=== PATIENT | male | born 1955 | race Caucasian/White ===

== ENCOUNTER 2018-08-06 08:05 | Inpatient (IN) | payer MEDICARE, MEDICAID ==
[2018-08-06] MEDS ORDERED: Lactated Ringer 1,000 ML IV ONE (08:27)
[2018-08-06] MEDS ORDERED: Pantoprazole 80 MG in Sodium Chloride 0.9% 100 ML IV ONE (08:27)
[2018-08-06] MEDS ORDERED: Pantoprazole 80 MG in Sodium Chloride 0.9% 100 ML IV SCH (08:30)
[2018-08-06 08:52] LABS: % BASOPHILS 2.1 % (0.0-2.0); % EOSINOPHILS 3.2 % (0.0-5.0); % LYMPHOCYTES 9.2 % (20.0-50.0); % MONOCYTES 8.8 % (2.0-10.0); % NEUTROPHILS 76.7 % (40.0-80.0); BASOPHILE ABSOLUTE 0.3 Th/cumm (0-0.2); EOSINOPHILE ABSOLUTE 0.4 Th/cmm (0.1-0.4); HEMATOCRIT 40.2 % (41.0-60); HEMOGLOBIN 13.3 gm/dL (12-16); LYMPHOCYTE ABSOLUTE 1.2 Th/cmm (1.5-3.0); MEAN CELL VOLUME 85.9 fl (80-99); MEAN CORPUSCULAR HEMOGLOBIN 28.4 pg (26.0-30.0); MEAN CORPUSCULAR HGB CONC 33.1 pg (28.0-36.0); MEAN PLATELET VOLUME 7.9 fl; MONOCYTE ABSOLUTE 1.1 Th/cmm (0.3-1.0); PLATELET COUNT 293 Th/cmm (150-400); RED BLOOD COUNT 4.69 Mil/cmm (4.30-5.70); RED CELL DISTRIBUTION WIDTH 12.8 % (11.5-20.0)
[2018-08-06 09:05] LABS: INR 0.91 (0.5-1.4); PROTHROMBIN TIME (TEST) 9.5 SECONDS (9.5-11.5)
[2018-08-06 09:08] LABS: ALB/GLOB RATIO 1.2 (1.0-1.8); ALBUMIN 4.1 gm/dL (4.2-5.5); ALKALINE PHOSPHATASE 86 U/L (34-104); ANION GAP 15.7 (7.0-16.0); BILIRUBIN,TOTAL 0.4 mg/dL (0.3-1.0); BUN - UREA NITROGEN 30 mg/dL (7-25); CALCIUM SERUM 9.7 mg/dL (8.6-10.3); CARBON DIOXIDE 28.3 mEq/L (21.0-31.0); CHLORIDE 100 mEq/L (98-107); CREATININE - SERUM 0.8 mg/dL (0.7-1.3); GFR AFRICAN-AMERICAN > 60.0 ml/min (>90); GFR NON AFRICAN-AMERICAN > 60.0 ml/min; GLUCOSE 134 mg/dL (70-105); SGOT 40 U/L (13-39); SGPT/ALT 62 U/L (7-52); SODIUM SERUM 140 mEq/L (136-145); TOTAL PROTEIN,SERUM 7.5 gm/dL (6.0-8.3)
--- NOTE | 2018-08-06 09:14 | ED Physician Chart ---
ED Chief Complaint/HPI - Patient Information Date Seen:: 08/06/18 Time Seen:: 08:36 Chief Complaint:: coffee ground emesis & distended abdomen History of Present Illness:: coffee ground emesis & distended abdomen Allergies:: Allergies Allergy/AdvReac Type Severity Reaction Status Date / Time sulfamethoxazole AdvReac Verified 08/06/18 08:35 [From Bactrim] trimethoprim [From Bactrim] AdvReac Verified 08/06/18 08:35 Vitals:: Vital Signs - 8 hr 08/06/18 08:36 Temp 98.9 F HR 114 RR 19 BP 157/81 O2 Sat % 90 Historian:: Medical Records Review:: Nurse's Note Reviewed, Transfer documents Reviewed ED Review of Systems - Review of Systems General/Constitutional: No fever, No chills, No weight loss, No weakness, No diaphoresis, No edema, No loss of appetite Skin: No skin lesions, No rash, No bruising Head: No headache, No light-headedness Eyes: No loss of vision, No pain, No diplopia ENT: No earache, No nasal drainage, No sore throat, No tinnitus Neck: No neck pain, No swelling, No thyromegaly, No stiffness, No mass noted Cardio Vascular: No chest pain, No palpitations, No PND, No orthopnea, No edema Pulmonary: No SOB, No cough, No sputum, No wheezing GI: Vomiting, No diarrhea, Pain, No melena, No hematochezia, No constipation, Hematemesis, Other (coffee ground emesis) G/U: No dysuria, No frequency, No hematuria Musculoskeletal: No bone or joint pain, No back pain, No muscle pain Endocrine: No polyuria, No polydipsia Psychiatric: No prior psych history, No depression, No anxiety, No suicidal ideation Hematopoietic: No bruising, No lymphadenopathy Allergic/Immuno: No urticaria, No angioedema Neurological: No syncope, No focal symptoms, No weakness, No paresthesia, No headache, No seizure, No dizziness, No confusion, No vertigo ED Past Medical History - Past Medical History Obtainable: No Past Medical History: HTN, Dyslipidemia, PUD/GERD, Seizures, Other (profound intellectual disability; cerebral palsy; GI bleed history; right inguinal hernia ; ) Surgical History: PEG/GTube Family Medical History - Family Member Mother History Unknown: Yes ED Physical Exam - Physical Examination General/Constitutional: Awake Other Gen/Cons comments:: chronically ill appearing, pale. BUE contracted. BLE contracted at ankle and feet. profoundly intellectually challenged. Head: Atraumatic Eyes: Lids, conjuctiva normal, PERRL, EOMI Other Skin comments:: evidence of chronic skin break down on sacrum. Stage I on sacrum (decubitus). ENMT: External ears, nose nl Neck: Nontender Respiratory: Nl effort/Exclusion Other Respiratory comments:: decreased breath sounds at bases. Cardio Vascular: NL S1 S2 Other Cardio Vascular comments:: tachycardia. Other GI comments:: HUGELY DISTENDED ABDOMEN (APPEARANCE OF THAT OF A 10 MONTH ). Not tympanitic. Reaction of pain with palpation. Other comments:: appearance of paraphimosis of penis. No foreskin present though, so this is not paraphimosis. Small amount of yellow urine dribbling out of penis. Other Extremities comments:: BUE contracted. BLE contracted at ankle and feet. Other Neuro/Psych comments:: profoundly intellectually challenged. Other Misc comments:: evidence of chronic skin break down on sacrum. Stage I on sacrum (decubitus). ED Labs/Radiology/EKG Results - Lab Results Results: Laboratory Tests 08/06/18 08:40 WBC 13.0 H RBC 4.69 Hgb 13.3 Hct 40.2 L MCV 85.9 MCH 28.4 MCHC Differential 33.1 RDW 12.8 Plt Count 293 MPV 7.9 Neutrophils % 76.7 Lymphocytes % 9.2 L Monocytes % 8.8 Eosinophils % 3.2 Basophils % 2.1 H ED Assessment - Assessment General Assessment: EK:59:48 p.m. reveals sinus tachycardia with flipped t wave in III and V1. Acute abdominal series: bilateral lower lobe infiltrates versus atelectasis. HAZINESS IN ABDOMEN: ASCITES VS. DISTENDED BLADDER. No free air on upright CXR. Nonspecific bowel gas changes. CT scan of abdomen when only 800 cc had been evacuated from the bladder: large hiatal hernia extending over the right cardiac border into the right hemithorax. Significant distention of the urinary bladder. Enlarged prostate gland. Question of soft tissue density in the right inguinal canal. 4500 cc removed from the bladder with a jackson catheter. Dr. Valenzuela came through the emergency room and wrote admit orders. Facility called re: Urinary retention with hemolyzed blood with evacuation of 4500 cc plus ED Septic Shock - . Is Septic Shock (SBP<90, OR Lactate>4 mmol\L) present?: No - <6hrs of presentation: Vital Signs: Vital Signs - 8 hr 08/06/18 08:36 Temp 98.9 F HR 114 RR 19 BP 157/81 O2 Sat % 90 ED Reassessment (Disposition) - Reassessment Reassessment Condition:: Improved - Diagnosis Diagnosis:: GI bloeed Coffee ground emesis Urinary retention with hemolyzed blood with evacuation of 4500 cc plus Elevated liver function tests - Patient Disposition Discharge/Transfer:: Acute Care w/in this hosp Admitted to:: Telemetry Admitting Medical Physician:: Manan Valenzuela Condition at Disposition:: Stable, Improved
[2018-08-06 09:15] LABS: AMYLASE SERUM 41 U/L (29-103); LIPASE 22 U/L (11-82)
[2018-08-06 09:33] LABS: URINE SOURCE CATH
[2018-08-06 09:35] LABS: URINE BILIRUBIN NEGATIVE (NEGATIVE); URINE BLOOD MODERATE (NEGATIVE); URINE GLUCOSE (UA) NEGATIVE (NEGATIVE); URINE KETONE NEGATIVE (NEGATIVE); URINE LEUKOCYTE ESTERASE NEGATIVE (NEGATIVE); URINE MICROSCOPIC INDICATED? YES; URINE NITRATE NEGATIVE (NEGATIVE); URINE PH 6.5 (4.6 - 8.0); URINE PROTEIN TRACE mg/dL (NEGATIVE); URINE UROBILINOGEN 0.2 E.U./dL (0.2 - 1.0)
[2018-08-06 09:43] LABS: URINE COLOR YELLOW
[2018-08-06 09:49] LABS: URINE CLARITY HAZY (CLEAR)
[2018-08-06 09:50] LABS: URINE BACTERIA NONE SEEN /hpf (NONE SEEN); URINE EPITHELIAL CELLS OCCASIONAL /lpf (FEW); URINE WBC 0-2 /hpf (0-5)
--- NOTE | 2018-08-06 09:58 | Diagnostic Imaging Report ---
Exam: CT exam abdomen pelvis HISTORY: Pain Total DLP equals 513 CTDI equals 10.0 Findings: Multiple contiguous thin section of the abdomen pelvis obtained from lower thorax to pubic symphysis without administration of oral or intravenous contrast material. No prior studies available comparison. The study demonstrates some mild atelectatic changes in the left base There is evidence of for a hiatal hernia. Liver parenchyma spleen intact. The joint glands are normal. The pancreas is intact. Gastrostomy tube in the stomach. The kidneys demonstrate no evidence of obstructive uropathy or nephrolithiasis. Prominence of the pelvicalyceal system and proximal ureters most likely related to overdistention of the urinary bladder. There is significant distention of the urinary bladder. Clinical correlation recommended. Prostate gland is enlarged impinging on the urinary bladder floor. There is no evidence of diverticular disease of diverticulitis. No fluid collections noted. Bony structures demonstrate no evidence for lytic or blastic changes. There is evidence of soft tissue density in the right inguinal canal clinical correlation recommended. IMPRESSION: Large hiatal hernia extending over the right cardiac border into the right hemithorax. Significant distention of the urinary bladder Enlarged prostate gland. Question of soft tissue density in the right inguinal canal.
--- NOTE | 2018-08-06 10:00 | Diagnostic Imaging Report ---
Exam: Acute abdominal series. HISTORY: Distended abdomen. Findings: Multiple views of the abdomen reviewed. The study demonstrates a relative possibly of the bowel gas throughout the abdomen. Correlation with previous CT examination of the abdomen demonstrates significant distention of the urinary bladder. Bony structures intact. Gastrostomy tube is noted. There is evidence for herniation of the bowel content right-sided hemithorax IMPRESSION: significant distention of urinary bladder with opacification of the mid to lower abdomen.
[2018-08-06] MEDS ORDERED: Fleet Enema 135 mL RC PRN (10:04)
[2018-08-06] MEDS ORDERED: Magnesium Hydroxide (MOM) 30 mL UDC PO PRN (10:04)
--- NOTE | 2018-08-06 13:26 | History & Physical ---
ADMIT DATE: 08/06/2018 INTERNAL MEDICINE HISTORY AND PHYSICAL CHIEF COMPLAINT: Coffee-ground emesis. HISTORY OF PRESENT ILLNESS: This is a 62-year-old Nepali male with history of seizures, cerebral palsy, hypertension, hypercholesterolemia, admitted from nursing facility secondary to coffee-ground emesis. The patient was also with abdominal distention. The patient evaluated in the ER and admitted for further management. The patient's routine urine about 4500 mL. Back catheter was placed. The patient is not verbal, not interactive. PAST MEDICAL HISTORY: As mentioned in the history of present illness. PAST SURGICAL HISTORY: G-tube. ALLERGIES: SULFA AND TRIMETHOPRIM. MEDICATIONS: The patient is on Keppra, ascorbic acid, calcium, cholecalciferol, omeprazole, Tylenol, ____ iron, folic acid, magnesium, metoprolol, simvastatin, ____ FAMILY HISTORY: Noncontributory. SOCIAL HISTORY: The patient is a prison patient, requiring 24-hour total care. REVIEW OF SYSTEMS: This is limited secondary to the patient's current mental state. We will try to obtain more detailed review of system later date by talking to family members, ____ sister at [phone]. We will also try to get a few more information from nursing staff at [facility], . PHYSICAL EXAMINATION: VITAL SIGNS: Blood pressure is 187/80, respirations 18, pulse 114, temperature 99. GENERAL: Elderly male, appears stated age. NECK: Supple. No mass. LUNGS: Equal breath sounds, few rhonchi. HEART: Regular rate and rhythm. Systolic ejection murmur. ABDOMEN: Soft, globular. EXTREMITIES: Positive excoriation. NEUROLOGIC: Limited as G-tube. LABORATORY DATA: WBC 13, hemoglobin 13, platelets 293. Sodium 140, potassium 4.0, BUN 30, creatinine 0.8, blood sugar 134. ASSESSMENT AND PLAN: 1. Coffee-ground emesis, possible gastrointestinal bleeding. 2. Urinary retention. 3. Leukocytosis. 4. Anemia. 5. Renal insufficiency. 6. Elevated liver function test. 7. Seizure. 8. Cerebral palsy. 9. Hypertension. 10. Hypercholesterolemia. PLAN: Continue the patient on oxygen and bronchodilator treatments. Continue INR, proton pump inhibitor. Continue on Back. We will empirically start the patient on antibiotic. GI has been consulted. We will refer the patient to urologist as well for urinary retention. We will follow the patient closely. [facility]# [id number]
[2018-08-06] MEDS ORDERED: CARBAMAZEPINE 400 MG PO SCH (17:00)
[2018-08-06] MEDS ORDERED: Non-Formulary Item 1 EA (Levetiracetam [Keppra] 750 MG) PO SCH (17:00)
[2018-08-06] MEDS: D5-0.45NS 1,000 ML IV SCH (17:48)
[2018-08-07 05:14] LABS: % BASOPHILS 0.6 % (0.0-2.0); % EOSINOPHILS 5.3 % (0.0-5.0); % LYMPHOCYTES 13.9 % (20.0-50.0); % MONOCYTES 9.5 % (2.0-10.0); % NEUTROPHILS 70.7 % (40.0-80.0); EOSINOPHILE ABSOLUTE 0.4 Th/cmm (0.1-0.4); HEMOGLOBIN 10.4 gm/dL (12-16); LYMPHOCYTE ABSOLUTE 1.1 Th/cmm (1.5-3.0); MEAN CELL VOLUME 85.5 fl (80-99); MEAN CORPUSCULAR HEMOGLOBIN 28.4 pg (26.0-30.0); MEAN CORPUSCULAR HGB CONC 33.2 pg (28.0-36.0); MEAN PLATELET VOLUME 8.2 fl; MONOCYTE ABSOLUTE 0.7 Th/cmm (0.3-1.0); NEUTROPHILE ABSOLUTE 5.6 Th/cmm (1.8-8.0); PLATELET COUNT 240 Th/cmm (150-400); RED BLOOD COUNT 3.67 Mil/cmm (4.30-5.70); RED CELL DISTRIBUTION WIDTH 12.7 % (11.5-20.0)
[2018-08-07 05:26] LABS: HEMATOCRIT 31.3 % (41.0-60); WHITE BLOOD COUNT 7.8 Th/cmm (4.8-10.8)
[2018-08-07 05:55] LABS: BUN - UREA NITROGEN 20 mg/dL (7-25); CALCIUM SERUM 8.6 mg/dL (8.6-10.3); CARBON DIOXIDE 26.6 mEq/L (21.0-31.0); CHLORIDE 105 mEq/L (98-107); CREATININE - SERUM 0.5 mg/dL (0.7-1.3); GFR AFRICAN-AMERICAN > 60.0 ml/min (>90); GFR NON AFRICAN-AMERICAN > 60.0 ml/min; GLUCOSE 100 mg/dL (70-105); MAGNESIUM 1.8 mg/dL (1.9-2.7); POTASSIUM SERUM 3.6 mEq/L (3.5-5.1); SODIUM SERUM 141 mEq/L (136-145)
[2018-08-07] MEDS ORDERED: Non-Formulary Item 1 EA (Multivit,Th Iron,Other Min [Thera-M] 1 TAB) PO SCH (09:00)
[2018-08-07] MEDS: Multivitamin w/ Minerals Tab PO SCH (09:36)
[2018-08-07] MEDS: Ferrous Sulfate 325 MG TAB PO SCH (09:36)
[2018-08-07] MEDS: D5-0.45NS 1,000 ML IV SCH (09:46)
[2018-08-07] MEDS ORDERED: Mag Sulfate 2gm/50mL Premix 2 GM/50 ML BAG IV ONE (13:11)
--- NOTE | 2018-08-07 13:13 | Internal Medicine Prog Note ---
Internal Medicine Subjective - Subjective Patient seen and examined:: with staff, chart reviewed Patient is:: asleep, non-verbal, non-interactive, eyes closed, in bed Patient Complaints of:: congestion, cough Per staff patient has:: no adverse event, no episodes of fall, tolerating meds Internal Medicine Objective - Results Result Diagrams: 08/07/18 04:30 08/07/18 04:30 Recent Labs: Laboratory Last Values WBC 7.8 Th/cmm (4.8-10.8) D 08/07/18 04:30 RBC 3.67 Mil/cmm (4.30-5.70) L 08/07/18 04:30 Hgb 10.4 gm/dL (12-16) L 08/07/18 04:30 Hct 31.3 % (41.0-60) L D 08/07/18 04:30 MCV 85.5 fl (80-99) 08/07/18 04:30 MCH 28.4 pg (26.0-30.0) 08/07/18 04:30 MCHC Differential 33.2 pg (28.0-36.0) 08/07/18 04:30 RDW 12.7 % (11.5-20.0) 08/07/18 04:30 Plt Count 240 Th/cmm (150-400) 08/07/18 04:30 MPV 8.2 fl 08/07/18 04:30 Neutrophils % 70.7 % (40.0-80.0) 08/07/18 04:30 Lymphocytes % 13.9 % (20.0-50.0) L 08/07/18 04:30 Monocytes % 9.5 % (2.0-10.0) 08/07/18 04:30 Eosinophils % 5.3 % (0.0-5.0) H 08/07/18 04:30 Basophils % 0.6 % (0.0-2.0) 08/07/18 04:30 PT 9.5 SECONDS (9.5-11.5) 08/06/18 08:40 INR 0.91 (0.5-1.4) 08/06/18 08:40 PTT (Actin FS) 25.3 SECONDS (26.0-38.0) L 08/06/18 08:40 Sodium 141 mEq/L (136-145) 08/07/18 04:30 Potassium 3.6 mEq/L (3.5-5.1) 08/07/18 04:30 Chloride 105 mEq/L (98-107) 08/07/18 04:30 Carbon Dioxide 26.6 mEq/L (21.0-31.0) 08/07/18 04:30 Anion Gap 13.0 (7.0-16.0) 08/07/18 04:30 BUN 20 mg/dL (7-25) 08/07/18 04:30 Creatinine 0.5 mg/dL (0.7-1.3) L 08/07/18 04:30 Est GFR ( Amer) > 60.0 ml/min (>90) 08/07/18 04:30 Est GFR (Non-Af Amer) > 60.0 ml/min 08/07/18 04:30 BUN/Creatinine Ratio 40.0 08/07/18 04:30 Glucose 100 mg/dL (70-105) 08/07/18 04:30 Whole Bld Lactic Acid 1.10 mmol/L (0.60-1.99) 08/06/18 08:40 Calcium 8.6 mg/dL (8.6-10.3) 08/07/18 04:30 Phosphorus 3.7 mg/dL (2.5-5.0) 08/06/18 08:40 Magnesium 1.8 mg/dL (1.9-2.7) L 08/07/18 04:30 Total Bilirubin 0.4 mg/dL (0.3-1.0) 08/06/18 08:40 AST 40 U/L (13-39) H 08/06/18 08:40 ALT 62 U/L (7-52) H 08/06/18 08:40 Alkaline Phosphatase 86 U/L (34-104) 08/06/18 08:40 Ammonia 54 umol/L (16-53) H 08/07/18 04:30 B-Natriuretic Peptide 18.9 pg/mL (5.0-100.0) 08/07/18 04:30 Total Protein 7.5 gm/dL (6.0-8.3) 08/06/18 08:40 Albumin 4.1 gm/dL (4.2-5.5) L 08/06/18 08:40 Globulin 3.4 gm/dL 08/06/18 08:40 Albumin/Globulin Ratio 1.2 (1.0-1.8) 08/06/18 08:40 Amylase 41 U/L (29-103) 08/06/18 08:40 Lipase 22 U/L (11-82) 08/06/18 08:40 TSH 3.47 uIU/ml (0.34-5.60) 08/06/18 08:40 Urine Source CATH 08/06/18 08:51 Urine Color YELLOW 08/06/18 08:51 Urine Clarity HAZY (CLEAR) 08/06/18 08:51 Urine pH 6.5 (4.6 - 8.0) 08/06/18 08:51 Ur Specific [place] 1.010 (1.005-1.030) 08/06/18 08:51 Urine Protein TRACE mg/dL (NEGATIVE) 08/06/18 08:51 Urine Glucose (UA) NEGATIVE mg/dL (NEGATIVE) 08/06/18 08:51 Urine Ketones NEGATIVE mg/dL (NEGATIVE) 08/06/18 08:51 Urine Blood MODERATE (NEGATIVE) H 08/06/18 08:51 Urine Nitrate NEGATIVE (NEGATIVE) 08/06/18 08:51 Urine Bilirubin NEGATIVE (NEGATIVE) 08/06/18 08:51 Urine Urobilinogen 0.2 E.U./dL (0.2 - 1.0) 08/06/18 08:51 Ur Leukocyte Esterase NEGATIVE (NEGATIVE) 08/06/18 08:51 Urine RBC 10-25 /hpf (0-5) H 08/06/18 08:51 Urine WBC 0-2 /hpf (0-5) 08/06/18 08:51 Ur Epithelial Cells OCCASIONAL /lpf (FEW) 08/06/18 08:51 Calcium Oxalate Crystal FEW /hpf 08/06/18 08:51 Urine Bacteria NONE SEEN /hpf (NONE SEEN) 08/06/18 08:51 - Physical Exam Vitals and I&O: Vital Signs Temp 99 F 08/07/18 12:00 Pulse 81 08/07/18 12:00 Resp 18 08/07/18 12:00 BP 96/54 08/07/18 12:00 Pulse Ox 100 08/07/18 12:00 Intake & Output 02/04/1408/07/18 08/07/18 18:59 06:59 18:59 Intake Total 50 1150 Output Total 400 Balance 50 750 Weight (lbs) 66.587 kg 66.224 kg Intake: Intake, IV Amount 50 1050 Cefepime 1 gm In Dextrose 50 50 5% 50 ml @ 100 mls/hr IV Q12HR [facility] Rx#:[id number] D5-0.45NS 1,000 ml @ 80 1000 mls/hr IV .[id number] [facility] Rx #:[id number] Oral 0 Other 100 Output: Urine 400 Other: # Bowel Movements 0 Weight Source Bedscale Bedscale Active Medications: Current Medications Acetaminophen (Tylenol) 650 mg PO Q4HR PRN PRN Reason: Pain or Fever >101 Stop: 10/05/18 10:03 Amlodipine Besylate (Norvasc) 5 mg PO BID [facility] Stop: 10/05/18 16:59 Bisacodyl (Dulcolax 10 Mg Supp) 10 mg RC PRN PRN PRN Reason: Constipation Stop: 10/05/18 10:03 Carbamazepine (Tegretol) 400 mg PO BID [facility] Stop: 10/05/18 16:59 Last Admin: 08/07/18 09:36 Dose: 400 mg Ferrous Sulfate (Iron) 325 mg PO DAILY [facility] Stop: 10/06/18 08:59 Last Admin: 08/07/18 09:36 Dose: 325 mg Folic Acid (Folate) 1 mg PO DAILY [facility] Stop: 10/06/18 08:59 Last Admin: 08/07/18 09:36 Dose: 1 mg Cefepime HCl 1 gm/ Dextrose 50 mls @ 100 mls/hr IV Q12HR [facility] Stop: 10/05/18 10:14 Last Admin: 08/07/18 10:47 Dose: 100 mls/hr Dextrose/Sodium Chloride (D5-0.45ns) 1,000 mls @ 80 mls/hr IV .[id number] [facility] Stop: 10/05/18 10:14 Last Admin: 08/07/18 09:46 Dose: 80 mls/hr Magnesium Sulfate (Magnesium Sulfate Premix) 2 gm in 50 mls @ 25 mls/hr IV X1 ONE Stop: 08/07/18 15:10 Levetiracetam (Keppra) 750 mg PO BID [facility] Stop: 10/05/18 16:59 Last Admin: 08/07/18 09:36 Dose: 750 mg Lorazepam (Ativan) 1 mg IV Q4H PRN; Protocol PRN Reason: Seizure Stop: 10/05/18 10:05 Magnesium Hydroxide (Milk Of Magnesia) 30 ml PO HS PRN PRN Reason: Constipation Stop: 10/05/18 10:03 Metoprolol Tartrate (Lopressor) 25 mg PO BID [facility] Stop: 10/05/18 16:59 Last Admin: 08/07/18 09:36 Dose: 25 mg Pantoprazole Sodium (Protonix) 40 mg IVP BID [facility] Stop: 10/05/18 16:59 Last Admin: 08/07/18 10:49 Dose: 40 mg Simvastatin (Zocor) 20 mg PO HS [facility]; Protocol Stop: 10/05/18 16:59 Last Admin: 08/06/18 20:56 Dose: 20 mg Sodium Phosphate (Fleet Enema) 135 ml RC PRN PRN PRN Reason: Constipation Stop: 10/05/18 10:03 Tamsulosin HCl (Flomax) 0.4 mg PO [facility] Stop: 10/05/18 20:59 Last Admin: 08/06/18 20:57 Dose: 0.4 mg General: congested, demented, disheveled HEENT: NC/AT, PERRLA Neck: Supple Lungs: congested, rales Cardiovascular: RRR, Normal S1, Normal S2, without murmur Abdomen: soft, non-tender, globular, +GT Extremities: excoriation, contracture Neurological: no change - Procedures Procedures: Procedures Procedure Code Date DRAINAGE OF HYDROCELE 19754 09/21/[address] GASTROSTOMY TUBE 96972 12/09/14 EMERGENCY DEPT VISIT 48772 07/14/11 PERCUT TUNICA ASPIRATION 61.91 09/21/09 PERCUTANEOUS [ENDOSCOPIC] GASTROSTOMY [PEG] 43.11 12/09/14 Internal Medicine Assmt/Plan - Assessment Assessment: ASSESSMENT AND PLAN: 1. Coffee-ground emesis, possible gastrointestinal bleeding. 2. Urinary retention. 3. Leukocytosis. 4. Anemia. 5. Renal insufficiency. 6. Elevated liver function test. 7. Seizure. 8. Cerebral palsy. 9. Hypertension. 10. Hypercholesterolemia. - Plan Plan: PLAN: Continue the patient on oxygen and bronchodilator treatments. Continue INR, proton pump inhibitor. Continue on Back. We will empirically start the patient on antibiotic. GI has been consulted. We will refer the patient to urologist as well for urinary retention. We will follow the patient closely.
--- NOTE | 2018-08-07 13:20 | Consultation ---
DATE OF CONSULTATION: 08/07/2018 UROLOGY CONSULTATION REASON FOR CONSULTATION: Seen for urinary retention. HISTORY OF PRESENT ILLNESS: The patient is a 62-year-old who was seen in the Emergency Room, transferred from a [facility], basically for coffee-ground emesis and abdominal pain with distention. He was found to have a large distended bladder as well on the CT scan and Back was placed, draining 4.5 liters of urine. Since then, the abdomen has resumed normal status. The patient is nonverbal with cerebral palsy, mental retardation and unable to provide any history. There is no family member available at this time either. He is being evaluated by GI as well. PAST MEDICAL HISTORY: He is known to have cerebral palsy, mental retardation, hyperlipidemia, history of GI bleed, history of peptic ulcer disease and gastroesophageal reflux disorder, history of seizure disorder, and inguinal hernia. ALLERGIES: To SULFA and TRIMETHOPRIM. HOME MEDICATIONS: Tylenol, Norvasc, vitamins, laxatives, calcium supplement, Carbatrol, vitamin D3, iron, folic acid, Keppra, magnesium hydroxide, metoprolol, omeprazole, Zocor, and Flomax. REVIEW OF SYSTEMS: Unable to provide us but we know he had coffee ground emesis and abdominal pain. There is no diarrhea. There is no change in mental status. There is no documentation of coughing or shortness of breath or chest pain. No recent seizures were noted. The patient is unable to tell about headaches. We do not know about his vision and swallowing capabilities as he is on a G-tube feeding. Urologic, he was in massive retention, but no other history known except possibly that of urinary tract infection in the past. He does have a decubitus on the sacral area and contractures of the lower extremities, mostly at the ankle and toes. PHYSICAL EXAMINATION: GENERAL: On exam, he is awake. He follows with his eyes. VITAL SIGNS: Temperature 98.4, heart rate 85, blood pressure 123/62. He does not communicate. HEAD AND NECK: Normocephalic. Trachea central. Pupils equal and reactive. No jaundice. Thyroid and lymph nodes not palpable. Carotid bruit absent. CHEST: Symmetrical. LUNGS: Clear. No rales or rhonchi. HEART: Sounds normal in sinus rhythm, no murmur. ABDOMEN: Soft, nontender, nondistended. No organomegaly, mass, or hernia appreciably noted, although CT scan shows inguinal hernia. G-tube is present. GENITALIA: Normal male, penis looks circumcised, but slightly swollen without any evidence of infection or inflammation. Right testicle is normal. Left is not easily palpable. EXTREMITIES: Contracted, but no pedal edema or lymphadenopathy. Stage I decubitus on the sacrum. RECTAL EXAM: Normal reduced sphincter tone. Prostate is high to reach and not palpable easily to clinical technician the size, but a CT scan shows it to be enlarged. LABORATORY DATA: White count was 13 yesterday, today 7.8 with antibiotics. Hemoglobin was 13.3 yesterday, today 10.4 indicating some sort of GI bleed or other bleeding source. Urine is clear. He does not have significant hematuria, just microscopic hematuria is present. PT, PTT are unremarkable. Liver functions indicate mildly elevated AST and ALT and significantly elevated ammonia level of 54, BUN 20, creatinine 0.5, albumin 4.1. Blood culture is negative so far and the CT scan shows massively distended bladder and enlarged prostate and may be a right inguinal hernia and a large hiatal hernia, occupying significant part of the right hemithorax. IMPRESSION: 1. Chronic urinary retention with acute precipitation due to unclear reasons. Currently, Back catheter is functioning well. I do not think he is a candidate for any surgical intervention. Therefore, I would recommend an indwelling Back for an indefinite period of time, changing it every 3-4 weeks and irrigating it every 2 days with at least 200-300 mL of normal saline to prevent infection and incrustation. 2. History of gastrointestinal bleed as per Gastroenterology workup. 3. Mental retardation, cerebral palsy and seizure disorder, seems to be stable. 4. Hypertension, well controlled. 5. Hyperlipidemia also stable. 6. Decubitus on the sacrum. JOB# [id number]
--- NOTE | 2018-08-07 23:46 | Consultation ---
DATE OF CONSULTATION: 08/07/2018 GASTROINTESTINAL CONSULT CONSULTING PHYSICIAN: Dr. Valenzuela. REASON FOR CONSULTATION: Coffee-ground emesis. HISTORY OF PRESENT ILLNESS: The patient is a 62-year-old male with past medical history significant for seizure disorder, cerebral palsy, hypertension, hyperlipidemia, admitted from his nursing facility for coffee-ground emesis that was witnessed at the facility. Additionally, in the ER, the patient had evaluation with CT scan that showed large amount of retained urine and a Back catheter produced 4.5 liters of urine when this was placed. Since his admission to the ER, the patient had no witnessed episodes of vomiting. He is nonverbal that is why history is largely obtained from the nursing staff, from the chart. PAST MEDICAL HISTORY: History of cerebral palsy, history of seizure disorder, hypertension, hyperlipidemia, dysphagia with the G-tube. PAST SURGICAL HISTORY: G-tube placement. FAMILY HISTORY: Noncontributory. SOCIAL HISTORY: The patient lives in a nursing facility. There is no documented history of alcoholism or illicit drugs. ALLERGIES: THERE IS REPORTED ALLERGY TO SULFA. REVIEW OF SYSTEMS: Not possible given the patient's inability to participate in interview. CURRENT MEDICATIONS: Include Tylenol, amlodipine, bisacodyl, carbamazepine, cefepime, iron, Keppra, lorazepam, milk of magnesia, Lopressor, Protonix at twice daily dosing, Zocor, Fleet enema. PHYSICAL EXAMINATION: VITAL SIGNS: Blood pressure is 129/69, pulse 88 beats per minute, temperature 98.4, respiratory rate of 18, oxygenation is 98% on 2 liters. GENERAL: The patient lying on his back. He appears contracted. He is alert and oriented x 0. HEAD, EARS, EYES, NOSE AND THROAT: Normocephalic, atraumatic appearing head. Pupils are equal and reactive. He does not track. Moist mucous membranes. NECK: Supple. No obvious JVD or thyromegaly. CHEST: There are some crackles at the bases. CARDIOVASCULAR: S1, S2 are present, regular rate and rhythm. ABDOMEN: There is a G-tube clean, dry and intact. Otherwise soft, nontender to palpation. EXTREMITIES: Contracted appearing. No obvious edema. SKIN: No jaundice is noted. LABORATORY DATA: White blood cell count is 7.8, hemoglobin 10.4, platelet count 240. INR 0.9. BUN 20, creatinine 0.5, total bilirubin 0.4, AST 40, ALT 62, lipase is 22. IMAGING: Abdomen and pelvis CT scan was performed and this shows evidence of the hiatal hernia, atelectasis. Liver appears normal. Pancreas appears normal. Gastrostomy tube is in the stomach, significant distention of the urinary bladder. IMPRESSION: This is a 62-year-old male with history of seizure disorder, cerebral palsy, dysphagia with a gastric tube, admitted to the hospital with coffee-ground emesis and urinary retention. 1. Coffee-ground emesis. 2. Urinary retention problem. 3. Cerebral palsy. 4. Seizure disorder. 5. Dysphagia with gastric tube. DISCUSSION: Etiology of the patient's coffee ground-emesis may have been his hiatal hernia or it also could have had retained the fact that he had 4.5 liters retained in the bladder, which has now been evacuated. Either way, he has not had any further episodes of coffee-ground emesis since his admission here, and he appears largely stable. He has had upper endoscopy in 2014, and at that time, a G-tube was placed. Given his overall state of health, I do not feel that performing upper endoscopy at the current time would be beneficial for the patient, especially since he has had no further episodes of any vomiting here and is stable. Thus, I would reserve performing EGD on this patient unless he has further need for hemostasis or further episodes of coffee-ground emesis. In the meantime, we will treat conservatively with b.i.d. Protonix and this can be downgraded to daily Protonix in 1 month. RECOMMENDATIONS: 1. [place] endoscopy in case the patient needs hemostasis or has further coffee-ground emesis. 2. Agree with Protonix twice daily dosing for 1 month and this can be downgraded at that point to daily. 3. Restart the patient's G-tube feedings at the current time and this can be advanced to the goal rate. Hold for any residuals greater than 100 mL. 4. Management of the patient's urinary retention as per primary and Urology. We will continue to follow. Thank you for allowing us to participate in his care. Please call with any further questions. JOB# [id number]
[2018-08-08] MEDS: D5-0.45NS 1,000 ML IV SCH (00:44)
[2018-08-08 04:59] LABS: % BASOPHILS 1.1 % (0.0-2.0); % EOSINOPHILS 5.3 % (0.0-5.0); % MONOCYTES 9.2 % (2.0-10.0); % NEUTROPHILS 69.4 % (40.0-80.0); BASOPHILE ABSOLUTE 0.1 Th/cumm (0-0.2); EOSINOPHILE ABSOLUTE 0.4 Th/cmm (0.1-0.4); HEMATOCRIT 30.9 % (41.0-60); HEMOGLOBIN 10.2 gm/dL (12-16); LYMPHOCYTE ABSOLUTE 1.2 Th/cmm (1.5-3.0); MEAN CORPUSCULAR HEMOGLOBIN 28.3 pg (26.0-30.0); MEAN CORPUSCULAR HGB CONC 32.9 pg (28.0-36.0); MEAN PLATELET VOLUME 8.3 fl; MONOCYTE ABSOLUTE 0.7 Th/cmm (0.3-1.0); NEUTROPHILE ABSOLUTE 5.4 Th/cmm (1.8-8.0); PLATELET COUNT 255 Th/cmm (150-400); RED BLOOD COUNT 3.59 Mil/cmm (4.30-5.70); RED CELL DISTRIBUTION WIDTH 11.9 % (11.5-20.0); WHITE BLOOD COUNT 7.8 Th/cmm (4.8-10.8)
[2018-08-08 05:19] LABS: ANION GAP 10.3 (7.0-16.0); BUN - UREA NITROGEN 16 mg/dL (7-25); CALCIUM SERUM 8.2 mg/dL (8.6-10.3); CARBON DIOXIDE 26.4 mEq/L (21.0-31.0); CHLORIDE 104 mEq/L (98-107); CREATININE - SERUM 0.5 mg/dL (0.7-1.3); GFR AFRICAN-AMERICAN > 60.0 ml/min (>90); GFR NON AFRICAN-AMERICAN > 60.0 ml/min; GLUCOSE 108 mg/dL (70-105); MAGNESIUM 1.8 mg/dL (1.9-2.7); POTASSIUM SERUM 3.7 mEq/L (3.5-5.1); SODIUM SERUM 137 mEq/L (136-145)
--- NOTE | 2018-08-08 08:49 | GI Progress Note ---
Subjective - Review of Systems Service Date: 08/08/18 Subjective: Back within GC fistula. No vomiting Objective - Results Result Diagrams: 08/08/18 04:15 08/08/18 04:15 Recent Labs: Laboratory Last Values WBC 7.8 Th/cmm (4.8-10.8) 08/08/18 04:15 RBC 3.59 Mil/cmm (4.30-5.70) L 08/08/18 04:15 Hgb 10.2 gm/dL (12-16) L 08/08/18 04:15 Hct 30.9 % (41.0-60) L 08/08/18 04:15 MCV 86.0 fl (80-99) 08/08/18 04:15 MCH 28.3 pg (26.0-30.0) 08/08/18 04:15 MCHC Differential 32.9 pg (28.0-36.0) 08/08/18 04:15 RDW 11.9 % (11.5-20.0) 08/08/18 04:15 Plt Count 255 Th/cmm (150-400) 08/08/18 04:15 MPV 8.3 fl 08/08/18 04:15 Neutrophils % 69.4 % (40.0-80.0) 08/08/18 04:15 Lymphocytes % 15.0 % (20.0-50.0) L 08/08/18 04:15 Monocytes % 9.2 % (2.0-10.0) 08/08/18 04:15 Eosinophils % 5.3 % (0.0-5.0) H 08/08/18 04:15 Basophils % 1.1 % (0.0-2.0) 08/08/18 04:15 PT 9.5 SECONDS (9.5-11.5) 08/06/18 08:40 INR 0.91 (0.5-1.4) 08/06/18 08:40 PTT (Actin FS) 25.3 SECONDS (26.0-38.0) L 08/06/18 08:40 Sodium 137 mEq/L (136-145) 08/08/18 04:15 Potassium 3.7 mEq/L (3.5-5.1) 08/08/18 04:15 Chloride 104 mEq/L (98-107) 08/08/18 04:15 Carbon Dioxide 26.4 mEq/L (21.0-31.0) 08/08/18 04:15 Anion Gap 10.3 (7.0-16.0) 08/08/18 04:15 BUN 16 mg/dL (7-25) 08/08/18 04:15 Creatinine 0.5 mg/dL (0.7-1.3) L 08/08/18 04:15 Est GFR ( Amer) > 60.0 ml/min (>90) 08/08/18 04:15 Est GFR (Non-Af Amer) > 60.0 ml/min 08/08/18 04:15 BUN/Creatinine Ratio 32.0 08/08/18 04:15 Glucose 108 mg/dL (70-105) H 08/08/18 04:15 Whole Bld Lactic Acid 1.10 mmol/L (0.60-1.99) 08/06/18 08:40 Calcium 8.2 mg/dL (8.6-10.3) L 08/08/18 04:15 Phosphorus 3.7 mg/dL (2.5-5.0) 08/06/18 08:40 Magnesium 1.8 mg/dL (1.9-2.7) L 08/08/18 04:15 Total Bilirubin 0.4 mg/dL (0.3-1.0) 08/06/18 08:40 AST 40 U/L (13-39) H 08/06/18 08:40 ALT 62 U/L (7-52) H 08/06/18 08:40 Alkaline Phosphatase 86 U/L (34-104) 08/06/18 08:40 Ammonia 54 umol/L (16-53) H 08/07/18 04:30 B-Natriuretic Peptide 75.5 pg/mL (5.0-100.0) 08/08/18 04:15 Total Protein 7.5 gm/dL (6.0-8.3) 08/06/18 08:40 Albumin 4.1 gm/dL (4.2-5.5) L 08/06/18 08:40 Globulin 3.4 gm/dL 08/06/18 08:40 Albumin/Globulin Ratio 1.2 (1.0-1.8) 08/06/18 08:40 Amylase 41 U/L (29-103) 08/06/18 08:40 Lipase 22 U/L (11-82) 08/06/18 08:40 TSH 3.47 uIU/ml (0.34-5.60) 08/06/18 08:40 Urine Source CATH 08/06/18 08:51 Urine Color YELLOW 08/06/18 08:51 Urine Clarity HAZY (CLEAR) 08/06/18 08:51 Urine pH 6.5 (4.6 - 8.0) 08/06/18 08:51 Ur Specific [place] 1.010 (1.005-1.030) 08/06/18 08:51 Urine Protein TRACE mg/dL (NEGATIVE) 08/06/18 08:51 Urine Glucose (UA) NEGATIVE mg/dL (NEGATIVE) 08/06/18 08:51 Urine Ketones NEGATIVE mg/dL (NEGATIVE) 08/06/18 08:51 Urine Blood MODERATE (NEGATIVE) H 08/06/18 08:51 Urine Nitrate NEGATIVE (NEGATIVE) 08/06/18 08:51 Urine Bilirubin NEGATIVE (NEGATIVE) 08/06/18 08:51 Urine Urobilinogen 0.2 E.U./dL (0.2 - 1.0) 08/06/18 08:51 Ur Leukocyte Esterase NEGATIVE (NEGATIVE) 08/06/18 08:51 Urine RBC 10-25 /hpf (0-5) H 08/06/18 08:51 Urine WBC 0-2 /hpf (0-5) 08/06/18 08:51 Ur Epithelial Cells OCCASIONAL /lpf (FEW) 08/06/18 08:51 Calcium Oxalate Crystal FEW /hpf 08/06/18 08:51 Urine Bacteria NONE SEEN /hpf (NONE SEEN) 08/06/18 08:51 - Physical Exam Vitals and I&O: Vital Signs Temp 98.7 F 08/08/18 04:00 Pulse 86 08/08/18 07:19 Resp 18 08/08/18 07:19 BP 108/57 08/08/18 04:00 Pulse Ox 96 08/08/18 07:19 Intake & Output 08/07/18 08/08/18 08/08/18 18:59 06:59 18:59 Intake Total 50 1000 Output Total 550 Balance 50 450 Weight (lbs) 66.224 kg Intake: Intake, IV Amount 50 1000 Cefepime 1 gm In Dextrose 50 5% 50 ml @ 100 mls/hr IV Q12HR [facility] Rx#:[id number] D5-0.45NS 1,000 ml @ 80 1000 mls/hr IV .[id number] [facility] Rx #:[id number] Output: Urine 550 Other: # Bowel Movements 0 Weight Source Bedscale Active Medications: Current Medications Acetaminophen (Tylenol) 650 mg PO Q4HR PRN PRN Reason: Pain or Fever >101 Stop: 10/05/18 10:03 Amlodipine Besylate (Norvasc) 5 mg PO BID [facility] Stop: 10/05/18 16:59 Last Admin: 08/07/18 16:41 Dose: Not Given Bisacodyl (Dulcolax 10 Mg Supp) 10 mg RC PRN PRN PRN Reason: Constipation Stop: 10/05/18 10:03 Carbamazepine (Tegretol) 400 mg PO BID [facility] Stop: 10/05/18 16:59 Last Admin: 08/07/18 16:41 Dose: 400 mg Ferrous Sulfate (Iron) 325 mg PO DAILY [facility] Stop: 10/06/18 08:59 Last Admin: 08/07/18 09:36 Dose: 325 mg Folic Acid (Folate) 1 mg PO DAILY [facility] Stop: 10/06/18 08:59 Last Admin: 08/07/18 09:36 Dose: 1 mg Cefepime HCl 1 gm/ Dextrose 50 mls @ 100 mls/hr IV Q12HR [facility] Stop: 10/05/18 10:14 Last Admin: 08/07/18 21:56 Dose: 100 mls/hr Dextrose/Sodium Chloride (D5-0.45ns) 1,000 mls @ 80 mls/hr IV .[id number] [facility] Stop: 10/05/18 10:14 Last Admin: 08/08/18 00:44 Dose: 80 mls/hr Levetiracetam (Keppra) 750 mg PO BID [facility] Stop: 10/05/18 16:59 Last Admin: 08/07/18 16:40 Dose: 750 mg Lorazepam (Ativan) 1 mg IV Q4H PRN; Protocol PRN Reason: Seizure Stop: 10/05/18 10:05 Magnesium Hydroxide (Milk Of Magnesia) 30 ml PO HS PRN PRN Reason: Constipation Stop: 10/05/18 10:03 Metoprolol Tartrate (Lopressor) 25 mg PO BID [facility] Stop: 10/05/18 16:59 Last Admin: 08/07/18 16:40 Dose: Not Given Pantoprazole Sodium (Protonix) 40 mg IVP BID [facility] Stop: 10/05/18 16:59 Last Admin: 08/07/18 16:40 Dose: 40 mg Simvastatin (Zocor) 20 mg PO HS [facility]; Protocol Stop: 10/05/18 16:59 Last Admin: 08/07/18 21:56 Dose: 20 mg Sodium Phosphate (Fleet Enema) 135 ml RC PRN PRN PRN Reason: Constipation Stop: 10/05/18 10:03 Tamsulosin HCl (Flomax) 0.4 mg PO [facility] Stop: 10/05/18 20:59 Last Admin: 08/07/18 21:56 Dose: 0.4 mg General: Alert HEENT: Atraumatic Neck: Supple Cardiovascular: Regular rate Abdomen: Bowel sounds, Soft, no Tender, no Hepatomegaly, no Splenomegaly, no Distended, no Rebound, no Mass, no Guarding - Procedures Procedures: Procedures Procedure Code Date DRAINAGE OF HYDROCELE 69117 09/21/[address] GASTROSTOMY TUBE 97208 12/09/14 EMERGENCY DEPT VISIT 72381 07/14/11 PERCUT [place] ASPIRATION 61.91 09/21/09 PERCUTANEOUS [ENDOSCOPIC] GASTROSTOMY [PEG] 43.11 12/09/14 Assessment/Plan - Assessment Assessment: # Coffee ground emesis by history # Cerebral Palsy # Seizure disorder # G tube malfunction No further vomiting. Thus, we will treat non endoscopically as this did not appear to be a major GI bleed event. G tube changed at bedside on 08/07 with new 20f tube Plan: - ppi bid for 1 month, then daily - if further e/o GI bleed, we can perform EGD on this admission - trend hgb - once new G tube confirmed, can be used for tube feeding - hold for residual > 100cc GI to see intermittently, please call with any questions
--- NOTE | 2018-08-08 09:23 | Diagnostic Imaging Report ---
Portable chest x-ray HISTORY: Shortness of breath Somewhat limited exam due to difficulty in patient positioning. There is a very poor inspiration. Density about the right cardiophrenic angle. This corresponds to a relatively large hiatal hernia noted on the CT scan of August 06, 2018. No acute focal pulmonary parenchymal processes. No pleural fluid. IMPRESSION: 1. Density near the right cardiophrenic angle consistent with the previous CT documented large hiatal hernia of August 06, 2018. 2. No other acute abnormalities
[2018-08-08] MEDS: Ferrous Sulfate 325 MG TAB PO SCH (10:43)
[2018-08-08] MEDS: Multivitamin w/ Minerals Tab PO SCH (10:43)
--- NOTE | 2018-08-08 11:33 | Diagnostic Imaging Report ---
Upper GI (Limited) HISTORY: Gastrostomy tube placement Water-soluble contrast was instilled into the patient's gastrostomy tube. There is opacification of the gastric lumen with flow contrast into the duodenum. There is a large hiatal hernia with the gastric fundus situated above the diaphragm. IMPRESSION: 1. Confirmation of gastrostomy tube within the gastric lumen 2. Large hiatal hernia with the gastric fundus above the diaphragm.
[2018-08-08 12:11] LABS: FOLIC ACID >20.0 ng/mL (>3.0)
[2018-08-08] MEDS ORDERED: Mag Sulfate 2gm/50mL Premix 2 GM/50 ML BAG IV ONE (12:22)
--- NOTE | 2018-08-08 12:23 | Internal Medicine Prog Note ---
Internal Medicine Subjective - Subjective Patient seen and examined:: with staff, chart reviewed Patient is:: asleep, non-verbal, non-interactive, eyes closed, in bed Patient Complaints of:: congestion, cough Per staff patient has:: no adverse event, no episodes of fall, tolerating meds Internal Medicine Objective - Results Result Diagrams: 08/08/18 04:15 08/08/18 04:15 Recent Labs: Laboratory Last Values WBC 7.8 Th/cmm (4.8-10.8) 08/08/18 04:15 RBC 3.59 Mil/cmm (4.30-5.70) L 08/08/18 04:15 Hgb 10.2 gm/dL (12-16) L 08/08/18 04:15 Hct 30.9 % (41.0-60) L 08/08/18 04:15 MCV 86.0 fl (80-99) 08/08/18 04:15 MCH 28.3 pg (26.0-30.0) 08/08/18 04:15 MCHC Differential 32.9 pg (28.0-36.0) 08/08/18 04:15 RDW 11.9 % (11.5-20.0) 08/08/18 04:15 Plt Count 255 Th/cmm (150-400) 08/08/18 04:15 MPV 8.3 fl 08/08/18 04:15 Neutrophils % 69.4 % (40.0-80.0) 08/08/18 04:15 Lymphocytes % 15.0 % (20.0-50.0) L 08/08/18 04:15 Monocytes % 9.2 % (2.0-10.0) 08/08/18 04:15 Eosinophils % 5.3 % (0.0-5.0) H 08/08/18 04:15 Basophils % 1.1 % (0.0-2.0) 08/08/18 04:15 PT 9.5 SECONDS (9.5-11.5) 08/06/18 08:40 INR 0.91 (0.5-1.4) 08/06/18 08:40 PTT (Actin FS) 25.3 SECONDS (26.0-38.0) L 08/06/18 08:40 Sodium 137 mEq/L (136-145) 08/08/18 04:15 Potassium 3.7 mEq/L (3.5-5.1) 08/08/18 04:15 Chloride 104 mEq/L (98-107) 08/08/18 04:15 Carbon Dioxide 26.4 mEq/L (21.0-31.0) 08/08/18 04:15 Anion Gap 10.3 (7.0-16.0) 08/08/18 04:15 BUN 16 mg/dL (7-25) 08/08/18 04:15 Creatinine 0.5 mg/dL (0.7-1.3) L 08/08/18 04:15 Est GFR ( Amer) > 60.0 ml/min (>90) 08/08/18 04:15 Est GFR (Non-Af Amer) > 60.0 ml/min 08/08/18 04:15 BUN/Creatinine Ratio 32.0 08/08/18 04:15 Glucose 108 mg/dL (70-105) H 08/08/18 04:15 Whole Bld Lactic Acid 1.10 mmol/L (0.60-1.99) 08/06/18 08:40 Calcium 8.2 mg/dL (8.6-10.3) L 08/08/18 04:15 Phosphorus 3.7 mg/dL (2.5-5.0) 08/06/18 08:40 Magnesium 1.8 mg/dL (1.9-2.7) L 08/08/18 04:15 Total Bilirubin 0.4 mg/dL (0.3-1.0) 08/06/18 08:40 AST 40 U/L (13-39) H 08/06/18 08:40 ALT 62 U/L (7-52) H 08/06/18 08:40 Alkaline Phosphatase 86 U/L (34-104) 08/06/18 08:40 Ammonia 54 umol/L (16-53) H 08/07/18 04:30 B-Natriuretic Peptide 75.5 pg/mL (5.0-100.0) 08/08/18 04:15 Total Protein 7.5 gm/dL (6.0-8.3) 08/06/18 08:40 Albumin 4.1 gm/dL (4.2-5.5) L 08/06/18 08:40 Globulin 3.4 gm/dL 08/06/18 08:40 Albumin/Globulin Ratio 1.2 (1.0-1.8) 08/06/18 08:40 Amylase 41 U/L (29-103) 08/06/18 08:40 Lipase 22 U/L (11-82) 08/06/18 08:40 Vitamin B12 1047 pg/mL (232-1245) 08/07/18 04:30 Folic Acid >20.0 ng/mL (>3.0) 08/07/18 04:30 TSH 3.47 uIU/ml (0.34-5.60) 08/06/18 08:40 Urine Source CATH 08/06/18 08:51 Urine Color YELLOW 08/06/18 08:51 Urine Clarity HAZY (CLEAR) 08/06/18 08:51 Urine pH 6.5 (4.6 - 8.0) 08/06/18 08:51 Ur Specific [place] 1.010 (1.005-1.030) 08/06/18 08:51 Urine Protein TRACE mg/dL (NEGATIVE) 08/06/18 08:51 Urine Glucose (UA) NEGATIVE mg/dL (NEGATIVE) 08/06/18 08:51 Urine Ketones NEGATIVE mg/dL (NEGATIVE) 08/06/18 08:51 Urine Blood MODERATE (NEGATIVE) H 08/06/18 08:51 Urine Nitrate NEGATIVE (NEGATIVE) 08/06/18 08:51 Urine Bilirubin NEGATIVE (NEGATIVE) 08/06/18 08:51 Urine Urobilinogen 0.2 E.U./dL (0.2 - 1.0) 08/06/18 08:51 Ur Leukocyte Esterase NEGATIVE (NEGATIVE) 08/06/18 08:51 Urine RBC 10-25 /hpf (0-5) H 08/06/18 08:51 Urine WBC 0-2 /hpf (0-5) 08/06/18 08:51 Ur Epithelial Cells OCCASIONAL /lpf (FEW) 08/06/18 08:51 Calcium Oxalate Crystal FEW /hpf 08/06/18 08:51 Urine Bacteria NONE SEEN /hpf (NONE SEEN) 08/06/18 08:51 - Physical Exam Vitals and I&O: Vital Signs Temp 97.2 F 08/08/18 12:00 Pulse 84 08/08/18 12:00 Resp 18 08/08/18 12:00 BP 123/65 08/08/18 12:00 Pulse Ox 100 08/08/18 12:00 Intake & Output 08/07/18 08/08/18 08/08/18 18:59 06:59 18:59 Intake Total 50 1050 Output Total 550 Balance 50 500 Weight (lbs) 66.224 kg Intake: Intake, IV Amount 50 1050 Cefepime 1 gm In Dextrose 50 50 5% 50 ml @ 100 mls/hr IV Q12HR [facility] Rx#:[id number] D5-0.45NS 1,000 ml @ 80 1000 mls/hr IV .[id number] [facility] Rx #:[id number] Output: Urine 550 Other: # Bowel Movements 0 Weight Source Bedscale Active Medications: Current Medications Acetaminophen (Tylenol) 650 mg PO Q4HR PRN PRN Reason: Pain or Fever >101 Stop: 10/05/18 10:03 Amlodipine Besylate (Norvasc) 5 mg PO BID [facility] Stop: 10/05/18 16:59 Last Admin: 08/08/18 11:31 Dose: Not Given Bisacodyl (Dulcolax 10 Mg Supp) 10 mg RC PRN PRN PRN Reason: Constipation Stop: 10/05/18 10:03 Carbamazepine (Tegretol) 400 mg PO BID [facility] Stop: 10/05/18 16:59 Last Admin: 08/08/18 11:31 Dose: Not Given Ferrous Sulfate (Iron) 325 mg PO DAILY [facility] Stop: 10/06/18 08:59 Last Admin: 08/08/18 10:43 Dose: 325 mg Folic Acid (Folate) 1 mg PO DAILY [facility] Stop: 10/06/18 08:59 Last Admin: 08/08/18 10:43 Dose: 1 mg Cefepime HCl 1 gm/ Dextrose 50 mls @ 100 mls/hr IV Q12HR [facility] Stop: 10/05/18 10:14 Last Admin: 08/08/18 11:29 Dose: Not Given Magnesium Sulfate (Magnesium Sulfate Premix) 2 gm in 50 mls @ 25 mls/hr IV X1 ONE Stop: 08/08/18 14:21 Dextrose/Sodium Chloride (D5-0.45ns) 1,000 mls @ 60 mls/hr IV .[id number] [facility] Stop: 10/07/18 12:29 Levetiracetam (Keppra) 750 mg PO BID [facility] Stop: 10/05/18 16:59 Last Admin: 08/08/18 11:31 Dose: Not Given Lorazepam (Ativan) 1 mg IV Q4H PRN; Protocol PRN Reason: Seizure Stop: 10/05/18 10:05 Magnesium Hydroxide (Milk Of Magnesia) 30 ml PO HS PRN PRN Reason: Constipation Stop: 10/05/18 10:03 Metoprolol Tartrate (Lopressor) 25 mg PO BID [facility] Stop: 10/05/18 16:59 Last Admin: 08/08/18 11:31 Dose: Not Given Pantoprazole Sodium (Protonix) 40 mg IVP BID [facility] Stop: 10/05/18 16:59 Last Admin: 08/08/18 11:30 Dose: Not Given Simvastatin (Zocor) 20 mg PO HS [facility]; Protocol Stop: 10/05/18 16:59 Last Admin: 08/07/18 21:56 Dose: 20 mg Sodium Phosphate (Fleet Enema) 135 ml RC PRN PRN PRN Reason: Constipation Stop: 10/05/18 10:03 Tamsulosin HCl (Flomax) 0.4 mg PO HS [facility] Stop: 10/05/18 20:59 Last Admin: 08/07/18 21:56 Dose: 0.4 mg General: congested, demented, disheveled HEENT: NC/AT, PERRLA Neck: Supple Lungs: congested, rales Cardiovascular: RRR, Normal S1, Normal S2, without murmur Abdomen: soft, non-tender, globular, +GT Extremities: excoriation, contracture Neurological: no change - Procedures Procedures: Procedures Procedure Code Date DRAINAGE OF HYDROCELE 89273 09/21/[address] GASTROSTOMY TUBE 75969 12/09/14 EMERGENCY DEPT VISIT 30487 07/14/11 PERCUT [place] ASPIRATION 61.91 09/21/09 PERCUTANEOUS [ENDOSCOPIC] GASTROSTOMY [PEG] 43.11 12/09/14 Internal Medicine Assmt/Plan - Assessment Assessment: ASSESSMENT AND PLAN: 1. Coffee-ground emesis, possible gastrointestinal bleeding. 2. Urinary retention. 3. Leukocytosis. 4. Anemia. 5. Renal insufficiency. 6. Elevated liver function test. 7. Seizure. 8. Cerebral palsy. 9. Hypertension. 10. Hypercholesterolemia. - Plan Plan: PLAN: Continue the patient on oxygen and bronchodilator treatments. Continue INR, proton pump inhibitor. Continue on Back. We will empirically start the patient on antibiotic. GI has been consulted. We will refer the patient to urologist as well for urinary retention. We will follow the patient closely. Nutritional Asmnt/Malnutr-PDOC - Dietary Evaluation Malnutrition Findings (Please click <Entered> for more info): Nutritional Asmnt/Malnutrition Start: 08/07/18 15: 50 Text: Status: Complete Freq: Protocol: Document 08/07/18 15:50 LCHENG (Rec: 08/07/18 16:06 LCHENG [email or web address]) Nutritional Asmnt/Malnutrition Patient General Information Nutritional Screening High Risk Consult Diagnosis GI Bleed Pertinent Medical Hx/Surgical Hx HTN, dyslipidemia, PUD/GERD, seizures, progound intellectual disability, CP, GI bleed, right inguinal hernia, PEPG/Gtube Subjective Information Consult received for uxan 10 and imobility. Pt seen lying in bed at time of visit, NPO status. Diet will start at dinner - mech soft ground diet , pureed fruits and vegetables , [place] three bolus feeding daily. Current Diet Order/ Nutrition Support NPO Pertinent Medications D5-0.45ns, iron, folate, protonix Pertinent Labs 08/07 Cr 0.5, Mg 1.8 Nutritional Hx/Data Height 1.6 m Height (Calculated Centimeters) 160.0 Current Weight (lbs) 66.224 kg Weight (Calculated Kilograms) 66.2 Weight (Calculated Grams) 74096.5 [place] Body Weight 124 Body Mass Index (BMI) 25.8 GI Symptoms GI Symptoms None Last BM none Difficult in: None Skin Integrity/Comment: chronic wound to left lateral malleolus, balnchable erythema to buttocks xuan 10 Estimated Nutritional Goals BEE in Kcals: Using Current wt Calories/Kcals/Kg 25-30 Kcals Calculated 5894-6074 Protein: Using Current wt Protein g/k Protein Calculated 66 Fluid: ml 1650-1980ml (1ml/kcal) Nutritional Problem 1. Problem Problem altered nutrition related labs Etiology electrolytes imbalance Signs/Symptoms: Mg 1.8 Malnutrition Alert Is there a minimum of two criteria No selected? Query Text:Check all the applicable criteria. A minimum of two criteria are recommended for diagnosis of either severe or non-severe malnutrition. Malnutrition Related to Morbid Obesity Malnutrition related to morbid obesity No Intervention/Recommendation Comments 1. Start oral diet with bolus feeding as ordered. MD to replace electrolytes as needed . 2. Monitor PO intake and tolerance, wt, labs and skin integrity 3. F/U as high risk in 2-3 days Expected Outcomes/Goals Expected Outcomes/Goals 1. PO intake to meet at least 75% of nutritional needs. 2. Wt stability, skin to remain intact, labs to approach WNL.
[2018-08-08] MEDS ORDERED: D5-0.45NS 1,000 ML IV SCH (12:30)
--- NOTE | 2018-08-09 07:48 | Progress Notes ---
DATE: UROLOGY PROGRESS NOTE SUBJECTIVE: The patient is nonverbal, but has had some coughing. He is tolerating his diet and the Back is functioning well. OBJECTIVE: VITAL SIGNS: On exam, his temperature is 98.5, heart rate 86, blood pressure 129/59. ABDOMEN: Soft and nondistended. Bladder is not palpable. Back catheter; clear urine, no blood. EXTREMITIES: Contracted, but no edema. CARDIOVASCULAR: Heart sounds, sinus rhythm. LABORATORY DATA: White count 7.8, hemoglobin 10.2, both are stable. Electrolytes normal and stable and BUN 16, creatinine 0.5. Blood culture, no growth. Urine culture, no significant growth either. IMPRESSION: Acute and possibly chronic urinary retention. The patient will require a Back catheter for a long time. This should be changed every 3 weeks and irrigated every second day with 200-300 mL of normal saline to prevent encrustation, bleeding and infection. History of seizure disorder, cerebral palsy, mental retardation and residential status. History of hypertension. History of peptic ulcer disease and gastrointestinal bleed with esophageal reflux. Hyperlipidemia, stable. JOB# [id number]
[2018-08-09 08:06] LABS: % BASOPHILS 0.6 % (0.0-2.0); % EOSINOPHILS 6.6 % (0.0-5.0); % LYMPHOCYTES 14.7 % (20.0-50.0); % MONOCYTES 8.4 % (2.0-10.0); % NEUTROPHILS 69.7 % (40.0-80.0); EOSINOPHILE ABSOLUTE 0.5 Th/cmm (0.1-0.4); HEMATOCRIT 29.1 % (41.0-60); HEMOGLOBIN 9.6 gm/dL (12-16); MEAN CORPUSCULAR HEMOGLOBIN 28.7 pg (26.0-30.0); MEAN CORPUSCULAR HGB CONC 32.9 pg (28.0-36.0); MEAN PLATELET VOLUME 8.6 fl; MONOCYTE ABSOLUTE 0.6 Th/cmm (0.3-1.0); NEUTROPHILE ABSOLUTE 4.8 Th/cmm (1.8-8.0); PLATELET COUNT 290 Th/cmm (150-400); RED BLOOD COUNT 3.35 Mil/cmm (4.30-5.70); RED CELL DISTRIBUTION WIDTH 12.1 % (11.5-20.0); WHITE BLOOD COUNT 6.9 Th/cmm (4.8-10.8)
[2018-08-09 08:13] LABS: ANION GAP 10.6 (7.0-16.0); BUN - UREA NITROGEN 13 mg/dL (7-25); CALCIUM SERUM 8.3 mg/dL (8.6-10.3); CHLORIDE 104 mEq/L (98-107); CREATININE - SERUM 0.4 mg/dL (0.7-1.3); GFR AFRICAN-AMERICAN > 60.0 ml/min (>90); GFR NON AFRICAN-AMERICAN > 60.0 ml/min; GLUCOSE 106 mg/dL (70-105); MAGNESIUM 2.2 mg/dL (1.9-2.7); POTASSIUM SERUM 3.6 mEq/L (3.5-5.1); SODIUM SERUM 137 mEq/L (136-145)
[2018-08-09] MEDS: Multivitamin w/ Minerals Tab PO SCH (10:18)
[2018-08-09] MEDS: Ferrous Sulfate 325 MG TAB PO SCH (10:20)
--- NOTE | 2018-08-09 14:05 | Internal Medicine Prog Note ---
Internal Medicine Subjective - Subjective Service Date: 08/09/18 Patient is:: asleep, non-verbal, non-interactive, eyes closed, in bed Patient Complaints of:: congestion, cough Per staff patient has:: no adverse event, no episodes of fall, tolerating meds Internal Medicine Objective - Results Result Diagrams: 08/09/18 07:00 08/09/18 07:00 Recent Labs: Laboratory Last Values WBC 6.9 Th/cmm (4.8-10.8) 08/09/18 07:00 RBC 3.35 Mil/cmm (4.30-5.70) L 08/09/18 07:00 Hgb 9.6 gm/dL (12-16) L 08/09/18 07:00 Hct 29.1 % (41.0-60) L 08/09/18 07:00 MCV 87.0 fl (80-99) 08/09/18 07:00 MCH 28.7 pg (26.0-30.0) 08/09/18 07:00 MCHC Differential 32.9 pg (28.0-36.0) 08/09/18 07:00 RDW 12.1 % (11.5-20.0) 08/09/18 07:00 Plt Count 290 Th/cmm (150-400) 08/09/18 07:00 MPV 8.6 fl 08/09/18 07:00 Neutrophils % 69.7 % (40.0-80.0) 08/09/18 07:00 Lymphocytes % 14.7 % (20.0-50.0) L 08/09/18 07:00 Monocytes % 8.4 % (2.0-10.0) 08/09/18 07:00 Eosinophils % 6.6 % (0.0-5.0) H 08/09/18 07:00 Basophils % 0.6 % (0.0-2.0) 08/09/18 07:00 PT 9.5 SECONDS (9.5-11.5) 08/06/18 08:40 INR 0.91 (0.5-1.4) 08/06/18 08:40 PTT (Actin FS) 25.3 SECONDS (26.0-38.0) L 08/06/18 08:40 Sodium 137 mEq/L (136-145) 08/09/18 07:00 Potassium 3.6 mEq/L (3.5-5.1) 08/09/18 07:00 Chloride 104 mEq/L (98-107) 08/09/18 07:00 Carbon Dioxide 26.0 mEq/L (21.0-31.0) 08/09/18 07:00 Anion Gap 10.6 (7.0-16.0) 08/09/18 07:00 BUN 13 mg/dL (7-25) 08/09/18 07:00 Creatinine 0.4 mg/dL (0.7-1.3) L 08/09/18 07:00 Est GFR ( Amer) > 60.0 ml/min (>90) 08/09/18 07:00 Est GFR (Non-Af Amer) > 60.0 ml/min 08/09/18 07:00 BUN/Creatinine Ratio 32.5 08/09/18 07:00 Glucose 106 mg/dL (70-105) H 08/09/18 07:00 Whole Bld Lactic Acid 1.10 mmol/L (0.60-1.99) 08/06/18 08:40 Calcium 8.3 mg/dL (8.6-10.3) L 08/09/18 07:00 Phosphorus 3.7 mg/dL (2.5-5.0) 08/06/18 08:40 Magnesium 2.2 mg/dL (1.9-2.7) 08/09/18 07:00 Total Bilirubin 0.4 mg/dL (0.3-1.0) 08/06/18 08:40 AST 40 U/L (13-39) H 08/06/18 08:40 ALT 62 U/L (7-52) H 08/06/18 08:40 Alkaline Phosphatase 86 U/L (34-104) 08/06/18 08:40 Ammonia 54 umol/L (16-53) H 08/07/18 04:30 B-Natriuretic Peptide 47.9 pg/mL (5.0-100.0) 08/09/18 07:00 Total Protein 7.5 gm/dL (6.0-8.3) 08/06/18 08:40 Albumin 4.1 gm/dL (4.2-5.5) L 08/06/18 08:40 Globulin 3.4 gm/dL 08/06/18 08:40 Albumin/Globulin Ratio 1.2 (1.0-1.8) 08/06/18 08:40 Amylase 41 U/L (29-103) 08/06/18 08:40 Lipase 22 U/L (11-82) 08/06/18 08:40 Vitamin B12 1047 pg/mL (232-1245) 08/07/18 04:30 Folic Acid >20.0 ng/mL (>3.0) 08/07/18 04:30 TSH 3.47 uIU/ml (0.34-5.60) 08/06/18 08:40 Urine Source CATH 08/06/18 08:51 Urine Color YELLOW 08/06/18 08:51 Urine Clarity HAZY (CLEAR) 08/06/18 08:51 Urine pH 6.5 (4.6 - 8.0) 08/06/18 08:51 Ur Specific [place] 1.010 (1.005-1.030) 08/06/18 08:51 Urine Protein TRACE mg/dL (NEGATIVE) 08/06/18 08:51 Urine Glucose (UA) NEGATIVE mg/dL (NEGATIVE) 08/06/18 08:51 Urine Ketones NEGATIVE mg/dL (NEGATIVE) 08/06/18 08:51 Urine Blood MODERATE (NEGATIVE) H 08/06/18 08:51 Urine Nitrate NEGATIVE (NEGATIVE) 08/06/18 08:51 Urine Bilirubin NEGATIVE (NEGATIVE) 08/06/18 08:51 Urine Urobilinogen 0.2 E.U./dL (0.2 - 1.0) 08/06/18 08:51 Ur Leukocyte Esterase NEGATIVE (NEGATIVE) 08/06/18 08:51 Urine RBC 10-25 /hpf (0-5) H 08/06/18 08:51 Urine WBC 0-2 /hpf (0-5) 08/06/18 08:51 Ur Epithelial Cells OCCASIONAL /lpf (FEW) 08/06/18 08:51 Calcium Oxalate Crystal FEW /hpf 08/06/18 08:51 Urine Bacteria NONE SEEN /hpf (NONE SEEN) 08/06/18 08:51 - Physical Exam Vitals and I&O: Vital Signs Temp 98.1 F 08/09/18 11:39 Pulse 75 02/13/19 11:39 Resp 18 08/09/18 11:39 BP 123/55 08/09/18 11:39 Pulse Ox 97 08/09/18 11:39 Intake & Output 08/08/18 08/09/18 08/09/18 18:59 06:59 18:59 Intake Total 50 400 Output Total 550 Balance 50 -150 Weight (lbs) 146 lb Intake: Intake, IV Amount 50 Cefepime 1 gm In Dextrose 50 5% 50 ml @ 100 mls/hr IV Q12HR [facility] Rx#:[id number] Oral 0 Tube Feeding 400 Output: Urine 550 Other: # Bowel Movements 1 Stool Characteristics Soft Soft Liquid Liquid Weight Source Bedscale Active Medications: Current Medications Acetaminophen (Tylenol) 650 mg PO Q4HR PRN PRN Reason: Pain or Fever >101 Stop: 10/05/18 10:03 Last Admin: 08/09/18 10:18 Dose: 650 mg Amlodipine Besylate (Norvasc) 5 mg PO BID [facility] Stop: 10/05/18 16:59 Last Admin: 08/09/18 10:19 Dose: 5 mg Bisacodyl (Dulcolax 10 Mg Supp) 10 mg RC PRN PRN PRN Reason: Constipation Stop: 10/05/18 10:03 Carbamazepine (Tegretol) 400 mg PO BID [facility] Stop: 10/05/18 16:59 Last Admin: 08/09/18 10:20 Dose: 400 mg Ferrous Sulfate (Iron) 325 mg PO DAILY [facility] Stop: 10/06/18 08:59 Last Admin: 08/09/18 10:20 Dose: 325 mg Folic Acid (Folate) 1 mg PO DAILY [facility] Stop: 10/06/18 08:59 Last Admin: 08/09/18 10:22 Dose: 1 mg Levetiracetam (Keppra) 750 mg PO BID [facility] Stop: 10/05/18 16:59 Last Admin: 08/09/18 10:19 Dose: 750 mg Lorazepam (Ativan) 1 mg IV Q4H PRN; Protocol PRN Reason: Seizure Stop: 10/05/18 10:05 Magnesium Hydroxide (Milk Of Magnesia) 30 ml PO HS PRN PRN Reason: Constipation Stop: 10/05/18 10:03 Metoprolol Tartrate (Lopressor) 25 mg PO BID [facility] Stop: 10/05/18 16:59 Last Admin: 08/09/18 10:19 Dose: 25 mg Pantoprazole Sodium (Protonix) 40 mg IVP BID [facility] Stop: 10/05/18 16:59 Last Admin: 08/09/18 10:21 Dose: 40 mg Simvastatin (Zocor) 20 mg PO HS [facility]; Protocol Stop: 10/05/18 16:59 Last Admin: 08/08/18 22:37 Dose: 20 mg Sodium Phosphate (Fleet Enema) 135 ml RC PRN PRN PRN Reason: Constipation Stop: 10/05/18 10:03 Tamsulosin HCl (Flomax) 0.4 mg PO [facility] Stop: 10/05/18 20:59 Last Admin: 08/08/18 22:37 Dose: 0.4 mg General: congested, demented, disheveled HEENT: NC/AT, PERRLA Neck: Supple Lungs: congested, rales Cardiovascular: RRR, Normal S1, Normal S2, without murmur Abdomen: soft, non-tender, globular, +GT Extremities: excoriation, contracture Neurological: no change - Procedures Procedures: Procedures Procedure Code Date DRAINAGE OF HYDROCELE 96061 09/21/[address] GASTROSTOMY TUBE 75724 12/09/14 EMERGENCY DEPT VISIT 97301 07/14/11 PERCUT [place] ASPIRATION 61.91 09/21/09 PERCUTANEOUS [ENDOSCOPIC] GASTROSTOMY [PEG] 43.11 12/09/14 Internal Medicine Assmt/Plan - Assessment Assessment: ASSESSMENT AND PLAN: 1. Coffee-ground emesis, possible gastrointestinal bleeding. 2. Urinary retention. 3. Leukocytosis. 4. Anemia. 5. Renal insufficiency. 6. Elevated liver function test. 7. Seizure. 8. Cerebral palsy. 9. Hypertension. 10. Hypercholesterolemia. - Plan Plan: Continue the patient on oxygen and bronchodilator treatments. Continue INR, proton pump inhibitor. Continue on Back. We will empirically start the patient on antibiotic. GI has been consulted. We will refer the patient to urologist as well for urinary retention. We will follow the patient closely. Nutritional Asmnt/Malnutr-PDOC - Dietary Evaluation Malnutrition Findings (Please click <Entered> for more info): Nutritional Asmnt/Malnutrition Start: 08/07/18 15: 50 Text: Status: Complete Freq: Protocol: Document 08/07/18 15:50 [id number] (Rec: 08/07/18 16:06 [email or web address]) Nutritional Asmnt/Malnutrition Patient General Information Nutritional Screening High Risk Consult Diagnosis GI Bleed Pertinent Medical Hx/Surgical Hx HTN, dyslipidemia, PUD/GERD, seizures, progound intellectual disability, CP, GI bleed, right inguinal hernia, PEPG/Gtube Subjective Information Consult received for xuan 10 and imobility. Pt seen lying in bed at time of visit, NPO status. Diet will start at dinner - mech soft ground diet , pureed fruits and vegetables , Twocal three bolus feeding daily. Current Diet Order/ Nutrition Support NPO Pertinent Medications D5-0.45ns, iron, folate, protonix Pertinent Labs 08/07 Cr 0.5, Mg 1.8 Nutritional Hx/Data Height 5 ft 3 in Height (Calculated Centimeters) 160.0 Current Weight (lbs) 146 lb Weight (Calculated Kilograms) 66.2 Weight (Calculated Grams) 64096.5 [place] Body Weight 124 Body Mass Index (BMI) 25.8 GI Symptoms GI Symptoms None Last BM none Difficult in: None Skin Integrity/Comment: chronic wound to left lateral malleolus, balnchable erythema to buttocks xuan 10 Estimated Nutritional Goals BEE in Kcals: Using Current wt Calories/Kcals/Kg 25-30 Kcals Calculated 9850-4719 Protein: Using Current wt Protein g/k Protein Calculated 66 Fluid: ml 1650-1980ml (1ml/kcal) Nutritional Problem 1. Problem Problem altered nutrition related labs Etiology electrolytes imbalance Signs/Symptoms: Mg 1.8 Malnutrition Alert Is there a minimum of two criteria No selected? Query Text:Check all the applicable criteria. A minimum of two criteria are recommended for diagnosis of either severe or non-severe malnutrition. Malnutrition Related to Morbid Obesity Malnutrition related to morbid obesity No Intervention/Recommendation Comments 1. Start oral diet with bolus feeding as ordered. MD to replace electrolytes as needed . 2. Monitor PO intake and tolerance, wt, labs and skin integrity 3. F/U as high risk in 2-3 days Expected Outcomes/Goals Expected Outcomes/Goals 1. PO intake to meet at least 75% of nutritional needs. 2. Wt stability, skin to remain intact, labs to approach WNL.
--- NOTE | 2018-08-10 14:30 | Discharge Summary ---
DATE OF DISCHARGE: 08/09/2018 CHIEF COMPLAINT: Coffee-ground emesis. FINAL DIAGNOSES: Coffee-ground emesis/GI bleeding, which has resolved. Urinary retention, leukocytosis, anemia, renal insufficiency, elevated liver function test, seizure, cerebral palsy, hypertension, and hypercholesterolemia. HISTORY OF PRESENT ILLNESS: This 62-year-old [place] male with history of seizures, cerebral palsy, and hypertension, ____, admitted with coffee-ground emesis. The patient was diagnosed with urinary retention in the ER, and had a Back placed and admitted for further management. PHYSICAL EXAMINATION: VITAL SIGNS: Blood pressure 150/52, respirations 18, pulse 65, temperature 98.3. GENERAL: Elderly male, appears his stated age. NECK: Supple. No mass. LUNGS: Equal breath sounds, few rhonchi. HEART: Regular rate and rhythm. Systolic ejection murmur. ABDOMEN: Soft, globular. EXTREMITIES: Positive excoriation. NEUROLOGIC: Limited. HOSPITAL COURSE: The patient was admitted to telemetry. Continue on oxygen and bronchodilator treatment. Hemoglobin was monitored. No drastic drop. The patient was referred by Dr. Garcia for GI and Dr. Mims for Urology. The patient to continue with Back catheter and outpatient Urology follow up. The patient continued on p.o. antibiotic for ____ duration: The patient to be discharged to nursing facility. CONDITION ON DISCHARGE: Fair. DISCHARGE INSTRUCTIONS: The patient to continue with current care. Monitor hemoglobin and hematocrit. No need for endoscopy at this time, may consider outpatient. JOB# [id number]
== END 2018-08-09 17:45 | DRG 393 ==
LOC: ER 08:05 → TELE 10:34
PROVIDERS: ADMIT Internal Medicine; ATTEND Internal Medicine
PROC: 0D20XUZ Change Feeding Device in Upper Intestinal Tract, External Approach (ICD-10-PCS; principal; 2018-08-07)
DX: K94.23 Gastrostomy malfunction (principal); A41.9 Sepsis, unspecified organism; R53.2 Functional quadriplegia; K92.0 Hematemesis; R33.9 Retention of urine, unspecified; D64.9 Anemia, unspecified; L89.152 Pressure ulcer of sacral region, stage 2; I10 Essential (primary) hypertension; E78.5 Hyperlipidemia, unspecified; K21.9 Gastro-esophageal reflux disease without esophagitis; E78.00 Pure hypercholesterolemia, unspecified; N28.9 Disorder of kidney and ureter, unspecified; G80.9 Cerebral palsy, unspecified; G40.909 Epilepsy, unspecified, not intractable, without status epilepticus; R13.10 Dysphagia, unspecified; Y83.8 Other surgical procedures as the cause of abnormal reaction of the patient, or of later complication, without mention of misadventure at the time of the procedure; Y92.89 Other specified places as the place of occurrence of the external cause; Z88.2 Allergy status to sulfonamides
CPT/HCPCS: 36415-UA; 71045-TC; 74019-TC; 80048-TC; 80053-TC; 81001-TC; 82140-TC; 82150-TC; 82607-90; 82746-90; 83605; 83690-TC; 83735-TC; 83880-TC; 84100-TC; 84443-TC; 85025-TC; 85610-TC; 87086-90; 93005; 94760; 96375; C9113; J0692; J3475; J3490; Z7610